=== PATIENT | male | born 1985 | race Caucasian/White ===

== ENCOUNTER 2017-02-13 15:00 | Emergency (ER) | payer OTHER ==
[~2017-02-13] VITALS: Ht 180.3 cm; Wt 83.7 kg
[~2017-02-13 15:00] MED LIST: FLUOXETINE HCL20 MG PO; HYDROXYZINE HCL50 MG PO; LATUDA60 MG PO; LITHIUM CARBON300 M2 PO; LORATADINE10 M2 PO; NOHOMEMEDS
[2017-02-13 15:54] LABS: EOSINOPHIL COUNT 0.4 K/uL (0-0.3); HEMATOCRIT 49.4 % (38.0-50.0); IMMATURE GRANULOCYTE (%) 0.2 % (0.0-0.7); INSTRUMENT ABS NEUTROPHIL CT 3.9 K/uL; LYMPHOCYTE COUNT 3.1 K/uL (1.0-2.8); MCH 27.6 PG (29.0-34.0); MCHC 32.8 G/DL (30.0-36.0); MCV 84.3 FL (86-99); MEAN PLAT.VOLUME 10.1 uM^3 (9.0-12.4); MONOCYTE (%) 8.5 % (3-12); MONOCYTE COUNT 0.7 K/uL (0-0.8); NEUTROPHIL (%) 48.2 % (45-76); NEUTROPHIL COUNT 3.9 K/uL (1.8-6.4); PLATELET COUNT 289 K/uL (156-360); RBC DIS.WIDTH-CV 12.8 % (11.8-14.6); RED BLOOD COUNT 5.86 M/uL (4.00-5.50)
[2017-02-13 16:08] LABS: CHLORIDE 109 mEq/L (99-109); POTASSIUM 4.1 mEq/L (3.7-5.4); SODIUM 147 mEq/L (136-147)
[2017-02-13 16:11] LABS: GLUCOSE 86 mg/dL (70-99)
[2017-02-13 16:12] LABS: ANION GAP 10 MEQ/L (2-14); TOTAL BILIRUBIN 0.3 mg/dL (0.0-1.0)
[2017-02-13 16:13] LABS: SERUM ETHYL ALCOHOL < 10 mg/dL
[2017-02-13 16:14] LABS: GFR ESTIMATE (CALCULATED) > 59 mL/min/
[2017-02-13 16:15] LABS: ALKALINE PHOSPHATASE 64 IU/L (3-129)
[2017-02-13 16:16] LABS: UREA NITROGEN (BUN) 9 mg/dL (9-23)
[2017-02-13 16:18] LABS: SALICYLATE < 5.0 MG/DL (15-30)
[2017-02-13 16:47] VITALS: BP 147/97
== END 2017-02-13 17:00 | disposition home or self-care (01) ==
LOC: EME 15:00
PROVIDERS: Emergency Medicine
DX: F32.9 Major depressive disorder, single episode, unspecified (principal); F17.200 Nicotine dependence, unspecified, uncomplicated; F60.3 Borderline personality disorder
CPT/HCPCS: 80053; 81003; 85025; 90837; 99281; 99285; G0480

== ENCOUNTER 2017-02-13 17:26 | Emergency (ER) | payer OTHER ==
[~2017-02-13] VITALS: Ht 180.3 cm; Wt 82.3 kg
[2017-02-13 17:45] VITALS: BP 132/95
== END 2017-02-13 17:50 | disposition home or self-care (01) ==
LOC: EME 17:26
DX: F32.9 Major depressive disorder, single episode, unspecified (principal); F60.3 Borderline personality disorder; Z04.6 Encounter for general psychiatric examination, requested by authority
CPT/HCPCS: 99281; 99285

== ENCOUNTER 2017-11-05 00:54 | Emergency (ER) | payer OTHER ==
[~2017-11-05] VITALS: Ht 185.4 cm; Wt 82.0 kg
[2017-11-05 01:37] LABS: HEMATOCRIT 43.7 % (38.0-50.0); MCH 28.8 PG (29.0-34.0); MCHC 34.3 G/DL (30.0-36.0); PLATELET COUNT 293 K/uL (156-360); RBC DIS.WIDTH-CV 13.2 % (11.8-14.6); RBC DIS.WIDTH-SD 40.5 % (39-53); WHITE BLOOD COUNT 7.6 K/uL (4.1-10.2)
[2017-11-05 01:48] LABS: ALBUMIN 4.6 g/dL (3.2-4.8); CHLORIDE 109 mEq/L (99-109); POTASSIUM 3.8 mEq/L (3.7-5.4); SODIUM 144 mEq/L (136-147)
[2017-11-05 01:50] LABS: GLUCOSE 95 mg/dL (70-99); TOTAL PROTEIN 7.6 g/dL (6.4-8.3)
[2017-11-05 01:52] LABS: TOTAL BILIRUBIN 0.4 mg/dL (0.0-1.0)
[2017-11-05 01:53] LABS: SERUM ETHYL ALCOHOL 190 mg/dL
[2017-11-05 01:54] LABS: ALKALINE PHOSPHATASE 79 IU/L (3-129); CREATININE 0.9 mg/dL (0.6-1.3); GFR ESTIMATE (CALCULATED) > 59 mL/min/ (58.99-99999)
[2017-11-05 01:55] LABS: AST (GOT) 16 IU/L (2-34); UREA NITROGEN (BUN) 4 mg/dL (9-23)
[2017-11-05 01:57] LABS: ALT (GPT) 13 IU/L (3-49)
[2017-11-05 02:06] LABS: AMPHETAMINE NEGATIVE (500 ng/mL); BARBITURATES NEGATIVE (200 ng/mL); BENZODIAZEPINES NEGATIVE (150 ng/mL); BUPRENORPHINE NEGATIVE (10 ng/mL); COCAINE NEGATIVE (150 ng/mL); METHADONE NEGATIVE (200 ng/mL); METHAMPHETAMINE NEGATIVE (500 ng/mL); OPIATES (MORPHINE) NEGATIVE (100 ng/mL); OXYCODONE NEGATIVE (100 ng/mL); PHENCYCLIDINE NEGATIVE (25 ng/mL); PROPOXYPHENE NEGATIVE (300 ng/mL); THC CANNABINOIDS PRESUMPTIVE POSITIVE (50 ng/mL); TRICYCLIC ANTIDEPRESSANTS NEGATIVE (300 ng/mL)
[2017-11-05 06:03] VITALS: BP 141/70
== END 2017-11-05 06:05 | disposition home or self-care (01) ==
LOC: EME 00:54
PROVIDERS: Emergency Medicine
DX: F32.9 Major depressive disorder, single episode, unspecified (principal); F10.121 Alcohol abuse with intoxication delirium; Y90.6 Blood alcohol level of 120-199 mg/100 ml; F60.9 Personality disorder, unspecified; F41.9 Anxiety disorder, unspecified; F17.200 Nicotine dependence, unspecified, uncomplicated
CPT/HCPCS: 80053; 84999; 85027; 90837; 99281; 99284; G0480